=== PATIENT | female | born 1995 | race Caucasian/White ===

== ENCOUNTER 2019-01-02 08:00 | Inpatient (IN) | payer MEDICAID ==
[~2019-01-02] VITALS: Ht 154.9 cm; Wt 77.8 kg
[2019-01-02 10:53] VITALS: Ht 154.9 cm; Wt 77.8 kg
[2019-01-02 10:54] VITALS: BP 123/78; PULSE 90; RESP 16
[2019-01-02] MEDS ORDERED: CARBOPROST 250 MCG INJ IM PRN (11:00)
[2019-01-02] MEDS ORDERED: LIDOCAINE 1% (MPF) 30 ML INJ INJ PRN (11:00)
[2019-01-02] MEDS ORDERED: MISOPROSTOL 200 MCG TAB PR PRN (11:00)
[2019-01-02] MEDS ORDERED: OXYCODONE/ASPIRIN (4.88/325) TAB PO PRN (11:00)
[2019-01-02] MEDS ORDERED: OXYTOCIN 30 UNITS/LR 500 ML IV SCH ×3 (11:00→23:30)
[2019-01-02] MEDS ORDERED: IBUPROFEN 600 MG TAB PO PRN (11:00)
[2019-01-02] MEDS ORDERED: OXYTOCIN 30 UNITS/LR 500 ML IV PRN (11:00)
[2019-01-02] MEDS ORDERED: BUTORPHANOL 2 MG INJ IV PRN (11:00)
[2019-01-02] MEDS ORDERED: METHYLERGONOVINE 0.2 MG INJ IM PRN (11:00)
[2019-01-02] MEDS: LACTATED RINGER'S 1,000 ML IV SCH ×2 (11:11→17:46)
[2019-01-02] MEDS: MISOPROSTOL 50 MCG CAPSULE PO SCH ×3 (12:15→17:00)
--- NOTE | 2019-01-02 14:43 | HP ---
Date/Time of Note Date/Time of Note DATE: 01/02/19 TIME: 14:40 OB - History Hx of Present Free Text/Dictation 01/02/2019 : 3 Para: 2 Spontaneous : 0 Therapeutic : 0 Other Concerns: 23-year-old G3, P2 with a past 39 weeks and suspected macrosomia with estimated weight more than 90 percentile , patient presented for induction of labor recommended by perinatologist due to AC more than 90th percentile Patient denies any leaking of fluid, vaginal bleeding or decreased movement GBS negative. GDM testing negative Past Family/Social History * Past Medical, Surgical, Family and Obstetric Histories reviewed from [facility]. OB Admission Exam Vital Signs Vital Signs Vital Signs Date Temp Pulse Resp B/P (MAP) Pulse Ox O2 O2 Flow FiO2 Time Delivery Rate 01/02/19 98.3 90 16 123/78 10:54 (93) Physical Exam HEENT: WNL Lungs: Clear Abdomen: WNL Extremities: Normal Reflexes: Normal Cervical Dilatation: None Effacement: 0% Station: -3 Membranes: Intact Heart Rate: 130's Accelerations: Accelerations Present Decelerations: Early Decelerations Varibility: Moderate Intensity: Moderate Last 72 hours Lab Results CBC & BMP 01/02/19 11:10 Hemoglobin A1C Test 01/02/19 11:10 Hemoglobin A1c 5.3 OB Assessment/Plan Other Assessment: IUP at 39 weeks Suspected macrosomia GBS negative Patient was referred for induction of labor due to suspected LGA recommended by perinatologist Cervix not favorable Start induction with Cytotec per protocol Anticipate MYRA TELLES MD Jan 02, 2019 14:43
--- NOTE | 2019-01-02 23:20 | QN ---
Documentation Comment at 39w was brought for IOL for macrosomia used cytotec 2nd cytotec was given at 1621 VE /-3 GBS neg ARM clear fluid mod amount pitocin will be initiated DANIEL SILVA MD Jan 02, 2019 23:20
[2019-01-03] MEDS: LACTATED RINGER'S 1,000 ML IV SCH ×4 (01:18→11:02)
[2019-01-03] MEDS ORDERED: FENTAnyl 50 MCG/ML VIAL ONE (01:56)
[2019-01-03] MEDS ORDERED: FENTAnyl 2MCG/ML-ROPIV 0.2% 100 ML ONE (01:56)
[2019-01-03] MEDS ORDERED: ONDANSETRON 4 MG INJ ONE (02:56)
[2019-01-03] MEDS ORDERED: ONDANSETRON 4 MG INJ IV PRN (03:30)
[2019-01-03] MEDS ORDERED: MINERAL OIL LIGHT 10 ML VIAL TOP ONE (06:30)
--- NOTE | 2019-01-03 06:38 | LDN ---
Date/Time of Note Date/Time of Note DATE: 01/03/19 TIME: 06:35 Delivery Summary of normal male with x1 loose nuchal cord Weeks of Gestation 39w1d Placenta Delivered: Spontaneously, Intact & Complete Meconium: none Episiotomy: No Perineal laceration: 0 Anesthesia type: Epidural Estimated blood loss: 100 Sponge & Needle done & correct: Yes All needle counts correct: Yes Any foreign bodies felt in the: No Infant Delivery Information Sex Sex: male Apgars 1 Minute: 9 5 Minute: 9 Suctioning Nose & mouth suctioned at ryan: Yes Delee suction performed: Yes Umbilical Cord Umbilical cord with: 3 Vessels Cord presentations: nuchal cord Nuchal cord present X: 1 Cord Blood was obtained: Yes Mother & Baby Disposition Disposition Mom & Baby to Maternity; Good: Yes Mom transferred to: Other Baby to NICU: No () DANIEL SILVA MD Jan 03, 2019 06:38
[2019-01-03 08:30] VITALS: BP 139/81; PULSE 70; RESP 17
[2019-01-03] MEDS ORDERED: ZOLPIDEM 5 MG TAB PO PRN (09:00)
[2019-01-03] MEDS ORDERED: BENZOCAINE 20% 56 ML SPRAY TOP PRN (09:00)
[2019-01-03] MEDS ORDERED: CARBOPROST 250 MCG INJ IM PRN (09:00)
[2019-01-03] MEDS ORDERED: OXYCODONE/ASPIRIN (4.88/325) TAB PO PRN ×2 (09:00)
[2019-01-03] MEDS ORDERED: WITCH HAZEL/GLYCERIN PAD PR PRN (09:00)
[2019-01-03] MEDS ORDERED: MISOPROSTOL 200 MCG TAB PR PRN (09:00)
[2019-01-03] MEDS ORDERED: METHYLERGONOVINE 0.2 MG INJ IM PRN (09:00)
[2019-01-03] MEDS ORDERED: LANOLIN HPA 1 PKT TOP PRN (09:00)
[2019-01-03] MEDS ORDERED: OXYTOCIN 30 UNITS/LR 500 ML IV PRN (09:00)
[2019-01-03 09:30] VITALS: BP 117/78; PULSE 60; RESP 14
[2019-01-03] MEDS: SENNA/DOCUSATE NA (8.6MG/50MG) TAB PO SCH ×2 (09:49→20:22)
--- NOTE | 2019-01-03 10:39 | PAC ---
Date/Time of Note Date/Time of Note DATE: 01/03/19 TIME: 10:39 Post-Anesthesia Notes Post-Anesthesia Note Last documented vital signs Vital Signs Date Temp Pulse Resp B/P (MAP) Pulse Ox O2 O2 Flow FiO2 Time Delivery Rate 01/03/19 98.9 70 17 139/81 Room Air 08:30 (100) Activity: WNL Respiratory function: WNL Cardiovascular function: WNL Mental status: Baseline Pain reasonably controlled: Yes Hydration appropriate: Yes Nausea/Vomiting absent: Yes KITA GORDON DO Jan 03, 2019 10:39
--- NOTE | 2019-01-03 10:39 | PREAC ---
Date/Time of Note Date/Time of Note DATE: 01/03/19 TIME: 10:38 Anesthesia Eval and Record Evaluation Time Pre-Procedure Interview DATE: 01/03/19 TIME: 10:38 Age 23 Sex female NPO: 8 hrs Preoperative diagnosis labor pain Planned procedure epidural Past Medical History Past Medical History: None Surgery & Anesthesia Issues No known issue Meds Anticoagulation: No Beta Maria Teresa within 24 hr: No Reason Beta Maria Teresa not given: Pt. not on B-Maria Teresa Current Medications Lactated Ringer's 1,000 ml @ 125 mls/hr Q8H IV Last administered on 01/03/19at 05:22; Admin Dose 125 MLS/HR; Start 01/02/19 at 10:55 Oxytocin/Lactated Ringer's 500 ml @ 0 mls/hr ONCE PRN IV .VAGINAL BLEEDING; Start 01/02/19 at 11:00 Ibuprofen (Motrin) 600 mg Q6 PO ; Start 01/03/19 at 12:00 Oxycodone/Aspirin (Percodan) 1 tab Q3H PRN PO .PAIN 1-5; Start 01/03/19 at 09:00 Oxycodone/Aspirin (Percodan) 2 tab Q3H PRN PO .PAIN 6-10; Start 01/03/19 at 09:00 Zolpidem Tartrate (Ambien) 5 mg QHS PRN PO .INSOMNIA; Start 01/03/19 at 09:00 Senna/Docusate Sodium (Senokot-S) 1 tab BID PO Last administered on 01/03/19at 09:49; Admin Dose 1 TAB; Start 01/03/19 at 09:00 [place]/ Glycerin (Tucks Pads) 1 pad BEDSIDE MEDICATION PRN VT .HEMORRHOID/EPISIOTOMY PAIN Last administered on 01/03/19at 09:49; Admin Dose 1 PAD; Start 01/03/19 at 09:00 Benzocaine (Dermoplast [place]) 1 spray BEDSIDE MEDICATION PRN TOP .HEMMORHOID/EPISIOTOMY PAIN Last administered on 01/03/19at 09:49; Admin Dose 1 SPRAY; Start 01/03/19 at 09:00 Lanolin (Lanolin Hpa) 1 applic BEDSIDE MEDICATION PRN TOP .NIPPLES Last ad ministered on 01/03/19at 09:49; Admin Dose 1 APPLIC; Start 01/03/19 at 09:00 Diphtheria/ Tetanus/Acell Pertussis (Adacel) 0.5 ml ONCE ONCE IM* ; Start 01/05/19 at 09:00; Stop 01/05/19 at 09:01 Oxytocin/Lactated Ringer's 500 ml @ 0 mls/hr ONCE PRN IV .VAGINAL BLEEDING; Start 01/03/19 at 09:00 Methylergonovine Maleate (Methergine) 0.2 mg ONCE PRN IM .VAGINAL BLEEDING; Start 01/03/19 at 09:00 Carboprost Tromethamine (Hemabate) 250 mcg ONCE PRN IM .VAGINAL BLEEDING; Start 01/03/19 at 09:00 Misoprostol (Cytotec) 1,000 mcg ONCE PRN VT .VAGINAL BLEEDING; Start 01/03/19 at 09:00 Meds reviewed: Yes Allergies Coded Allergies: No Known Allergy (Unverified , 01/02/19) Allergies Reviewed: Yes Labs/Studies Labs Reviewed: Reviewed by anesthesiologist Result Diagram: 01/02/19 1110 01/02/19 1110 Laboratory Tests 01/02/19 11:10 Blood Bank Test 01/02/19 11:10 Antibody Screen NEGATIVE Blood Type O POSITIVE Rh Immune Globulin Candidate NO test: N/A Pre-procedure Exam Last vitals Vital Signs Date Temp Pulse Resp B/P (MAP) Pulse Ox O2 O2 Flow FiO2 Time Delivery Rate 01/03/19 98.9 70 17 139/81 Room Air 08:30 (100) Airway: Adequate mouth opening, Adequate thyromental dist Mallampati: Mallampati II Teeth: Normal Lung: Normal Heart: Normal ASA Physical Status ASA physical status: 2 Emergency: None Pre-operative Attestations Prior to commencing anesthesia and surgery, the patient was re-evaluated, there was verification of: *The patient's identity *The results of appropriate recent lab work and preoperative vital signs *The above evaluation not changing prior to induction *Anesthetic plan, risk benefits, alternative and complications discussed with patient/family; questions answered; patient/family understands, accepts and wishes to proceed. KITA GORDON DO Jan 03, 2019 10:39
[2019-01-03 12:30] VITALS: BP 132/77; PULSE 67; RESP 17
[2019-01-03] MEDS: IBUPROFEN 600 MG TAB PO SCH ×3 (12:37→23:13)
[2019-01-03 15:52] VITALS: BP 134/75; PULSE 58; RESP 16
[2019-01-03 20:20] VITALS: BP 135/73; PULSE 58; RESP 17
[2019-01-04] VITALS: BP 125/74; PULSE 52; RESP 18
[2019-01-04 04:00] VITALS: BP 115/67; PULSE 54; RESP 18
[2019-01-04] MEDS: IBUPROFEN 600 MG TAB PO SCH ×3 (05:51→17:38)
[2019-01-04 08:07] VITALS: BP 107/67; PULSE 57; RESP 16
[2019-01-04] MEDS: SENNA/DOCUSATE NA (8.6MG/50MG) TAB PO SCH ×2 (08:46→21:41)
[2019-01-04] MEDS: LACTATED RINGER'S 1,000 ML IV SCH (10:55)
--- NOTE | 2019-01-04 11:09 | PN ---
Date/Time of Note Date/Time of Note DATE: 01/04/19 TIME: 11:07 OB Subjective Subjective Subjective PPD# 1 Patient is doing well. She denies nausea, vomiting, shortness of breath, chest pain, headache. She has been ambulating without difficulty, tolerating regular diet. Pain is well controlled on current medications OB Objective Objective Objective VS - Last 72 Hours, by Label Date Temp Pulse Resp B/P (MAP) Pulse Ox O2 O2 Flow FiO2 Time Delivery Rate 01/04/19 98.4 57 16 107/67 Room Air 08:07 (80) 01/04/19 97.5 54 18 115/67 Room Air 04:00 (83) 01/04/19 97.8 52 18 125/74 Room Air 00:00 (91) 01/03/19 97.9 58 17 135/73 Room Air 20:20 (93) 01/03/19 98.4 58 16 134/75 Room Air 15:52 (94) 01/03/19 98.1 67 17 132/77 Room Air 12:30 (95) 01/03/19 99.0 60 14 117/78 Room Air 09:30 (91) 01/03/19 98.9 70 17 139/81 Room Air 08:30 (100) 01/02/19 98.3 90 16 123/78 10:54 (93) General: AAO X 3, comfortable, NAD, appropriate mood and affect. ABD: +BS. Soft, non-tender. Uterus 2 cm below umbilicus Flank: No CVA tenderness (B/L) LE: Mild edema. No clubbing, cyanosis, thigh or calf tenderness (B/L). Homans 'sign is negative Laboratory Tests Test 01/02/19 11:10 01/04/19 05:58 01/04/19 07:32 White Blood Count 8.8 10^3/ul 9.9 10^3/ul Red Blood Count 4.34 10^6/ul 3.72 10^6/ul Hemoglobin 12.3 g/dl 10.7 g/dl Hematocrit 38.5 % 33.7 % Mean Corpuscular Volume 88.7 fl 90.6 fl Mean Corpuscular 28.3 pg 28.8 pg Hemoglobin Mean Corpuscular 31.9 g/dl 31.8 g/dl Hemoglobin Concent Red Cell Distribution 14.2 % 14.5 % Width Platelet Count 206 10^3/UL 155 10^3/UL Mean Platelet Volume 10.9 fl 10.8 fl Immature Granulocytes % 0.600 % 0.600 % Neutrophils % 69.2 % 70.2 % Lymphocytes % 20.9 % 20.9 % Monocytes % 6.0 % 5.9 % Eosinophils % 3.1 % 2.1 % Basophils % 0.2 % 0.3 % Nucleated Red Blood Cells 0.0 /100WBC 0.0 /100WBC % Immature Granulocytes # 0.050 10^3/ul 0.060 10^3/ul Neutrophils # 6.1 10^3/ul 6.9 10^3/ul Lymphocytes # 1.8 10^3/ul 2.1 10^3/ul Monocytes # 0.5 10^3/ul 0.6 10^3/ul Eosinophils # 0.3 10^3/ul 0.2 10^3/ul Basophils # 0.0 10^3/ul 0.0 10^3/ul Nucleated Red Blood Cells 0.0 10^3/ul 0.0 10^3/ul # Prothrombin Time 12.1 Sec Prothrombin Time Ratio 0.9 INR International 0.89 Normalized Ratio Activated 27.1 Sec Partial Thromboplast Time Glucose Level 75 mg/dl Hemoglobin A1c 5.3 % Rapid Plasma Reagin NONREACTIVE Lab Scanned Report REFERENCE LAB [id number] OB Assessment/Plan Other plan: 23 years old -0-0-3 s/p normal vaginal delivery at 39 weeks. PPD#1 - AF, VSS - Baby is doing well, at bed side. She is bonding well - Contraception methods with R/B/A/FR discussed - Continue care - Discharge home tomorrow - Rx and instruction given - Follow up in 2 and 6 weeks at clinic ALAN DIAZ Jan 04, 2019 11:09
--- NOTE | 2019-01-04 11:10 | DS ---
Date/Time of Note Date/Time of Note DATE: 01/04/19 TIME: 11:09 Obstetrical Discharge Record Final Diagnosis Final Diagnosis: Term delivered Other Final Diagnosis 23 years old -0-0-3 s/p normal vaginal delivery at 39 weeks. She was admitted for induction of labor for suspected macrosomia. course was unremarkable. She is ambulating and tolerating regular diet. She is voiding without difficulty. Pain is controlled on current medication. - AF, VSS - Baby is doing well, at bed side. She is bonding well - Contraception methods with R/B/A/FR discussed - Continue care - Discharge home tomorrow - Rx and instruction given - Follow up in 2 and 6 weeks at clinic Complications Induction: Yes (Suspected macrosomia) Condition on Discharge Physical Assessment Last Vitals: Vital Signs Date Temp Pulse Resp B/P (MAP) Pulse Ox O2 O2 Flow FiO2 Time Delivery Rate 01/04/19 98.4 57 16 107/67 Room Air 08:07 (80) Voiding: Yes Bowel Movement: Yes Fundus: Firm Calf Tenderness: No Patient Condition: Stable ALAN DIAZ Jan 04, 2019 11:10
[2019-01-04 15:53] VITALS: BP 122/68; PULSE 56; RESP 18
[2019-01-04 16:46] VITALS: BP 122/68; PULSE 56; RESP 18
[2019-01-04 20:45] VITALS: BP 113/67; PULSE 53; RESP 18
[2019-01-05] MEDS: IBUPROFEN 600 MG TAB PO SCH ×3 (00:59→13:08)
[2019-01-05 04:00] VITALS: BP 126/72; PULSE 57; RESP 19
[2019-01-05] MEDS: SENNA/DOCUSATE NA (8.6MG/50MG) TAB PO SCH (08:18)
[2019-01-05 08:23] VITALS: BP 132/63; PULSE 64; RESP 18
[2019-01-05] MEDS ORDERED: DIPHTH/TET/ACEL PERTUSS (ADULT) 0.5 ML VIAL IM* ONE (09:00)
--- NOTE | 2019-01-06 16:01 | DELSUM ---
Delivery Summary A-C Datetime Report Generated by CPN: 01/06/2019 16:01 DELIVERY PERSONNEL Damper Fitter: Tersigni, Courtney MATERNAL INFORMATION Delivery Anesthesia: Spinal Medications in Delivery: LR with 30 units of pitocin Delivery QBL (ml): 170 Placenta Cultured: No Maternal Complications: None LABOR SUMMARY EDC: 01/09/2019 00:00 No. Babies in Womb: 1 Attempted: No Labor Anesthesia: Intrathecal LABOR INFORMATION Reason for Induction: Macrosomia Onset of Labor: 01/02/2019 22:04 Complete Dilatation: 01/03/2019 05:50 Cervical Ripening Agents: Cytotec @ Oxytocin: Induction Group B Beta Strep: Negative Antibiotics # of Doses: 0 Steroids Given: None Reason Steroids Not Administered: Not Applicable MEMBRANES Membranes Rupture Method: Artificial Rupture of Membranes: 01/02/2019 22:55 Length of Rupture (hr): 7.23 Amniotic Fluid Color: Clear Amniotic Fluid Amount: Moderate Amniotic Fluid Odor: None STAGES OF LABOR Stage 1 hr: 7 Stage 1 min: 46 Stage 2 hr: 0 Stage 2 min: 19 Stage 3 hr: 0 Stage 3 min: 4 Total Time in Labor hr: 8 Total Time in Labor min: 9 VAGINAL DELIVERY Episiotomy: None Laceration Extension: N/A Laceration Type: None Laceration Repair: Not Applicable Initial Vag Sponge Count: 10 Final Vag Sponge Count: 10 Initial Vag Sharps Count: 1 Final Vag Sharps Count: 1 Sponge Count Correct: Yes; Vaginal Sweep Performed Sharps Count Correct: Yes BABY A INFORMATION Delivery Date/Time: 01/03/2019 06:09 Method of Delivery: Vaginal Born in Route : No : N/A Forceps: N/A Vacuum Extraction: N/A Shoulder Dystocia : N/A SHOULDER DYSTOCIA BABY A Infant Delivery Date/Time: 01/03/2019 06:09 PRESENTATION/POSITION BABY A Presentation: Cephalic Cephalic Presentation: Vertex Vertex Position: Left Occipital Anterior Breech Presentation: N/A PLACENTA INFORMATION BABY A Placenta Delivery Time : 01/03/2019 06:13 Placenta Method of Delivery: Spontaneous Placenta Status: Delivered SCORES BABY A Heart Rate 1 min: >100 bpm Resp Effort 1 min: Good Cry Reflex Irritability 1 min: Cough/Sneeze/Pulls Away Muscle Tone 1 min: Active Motion Color 1 min: Body [place], Extremit Blue Resuscitation Effort 1 min: Tactile Stimulation SCORE 1 MIN: 9 Heart Rate 5 min: >100 bpm Resp Effort 5 min: Good Cry Reflex Irritability 5 min: Cough/Sneeze/Pulls Away Muscle Tone 5 min: Active Motion Color 5 min: Body [place], Extremit Blue Resuscitation Effort 5 min: Tactile Stimulation SCORE 5 MIN: 9 INFORMATION BABY A Gestational Age at Delivery: 39.1 Gestational Status: Full Term- 39- 40.6 Weeks Outcome : Liveborn Infant Condition : Stable Infant Sex: Male IDENTIFICATION/MEDS BABY A ID Band Number: [id number] ID Band Location: Right Leg; Left Arm Sensor Applied: Yes Sensor Number: [id number] Sensor Location : Cord Clamp Vitamin K Given : Not Given Erythromycin Given: Not Given WEIGHT/LENGTH BABY A Infant Birthweight (gm): 3410 Weight (lb): 7 Weight (oz): 8 Infant Length (in): 20.00 Infant Length (cm): 50.80 CORD INFORMATION BABY A No. Cord Vessels: 3 Nuchal Cord : Around Neck x1, Loose Cord Blood Taken: Yes Infant Suction: Mouth; Nose ASSESSMENT BABY A Complications: Decreased Variability Physical Findings at Delivery: Molding of the Head; Within Normal Limits Infant Respirations: Appears Normal Employee Benefits Administrator/ALS Called : Yes Infant Care By: João Daniels RN/RT Transferred To: Remains with Mother
== END 2019-01-05 14:50 | disposition home or self-care (01) | DRG 807 ==
LOC: L-D 10:16 → PP1 01-03 08:37
PROVIDERS: ADMIT Obstetrics & Gynecology; ATTEND Obstetrics & Gynecology
PROC: 10E0XZZ Delivery of Products of Conception, External Approach (ICD-10-PCS; principal; 2019-01-03)
PROC: 3E033VJ Introduction of Other Hormone into Peripheral Vein, Percutaneous Approach (ICD-10-PCS; 2019-01-03)
DX: O69.81X0 Labor and delivery complicated by cord around neck, without compression, not applicable or unspecified (principal); Z37.0 Single live birth; Z3A.39 39 weeks gestation of pregnancy
CPT/HCPCS: 62322; 76815; 82947; 83036; 85025; 85610; 85730; 86592; 86850; 86900; 86901; 90715; 99464; J2405; J2590; J3010; J7120